=== PATIENT | male | born 1970 | race Two or more races ===

== ENCOUNTER 2024-11-29 15:26 | Emergency (ER) | payer OTHER ==
[~2024-11-29] VITALS: Ht 190.5 cm; Wt 106.6 kg
[2024-11-29] MEDS ORDERED: FAMOTIDINE/PF 20 MG/2 ML VIAL ONE (16:58)
[2024-11-29] MEDS ORDERED: KETOROLAC TROMETHAMINE 30 MG VIAL ONE (16:58)
[2024-11-29] MEDS ORDERED: KETOROLAC TROMETHAMINE 30 MG VIAL IV ONE (17:00)
[2024-11-29] MEDS ORDERED: FAMOtidine 10 MG/ML (4ML VIAL) IV ONE (17:00)
[2024-11-29 17:24] LABS: BASO % 0.5 % (0.1-1.2); EOS # 0.00 (0.04-0.54); EOS % 0.0 % (0.7-7.0); LYMPH # 3.06 (1.18-3.74); LYMPH % 24.6 % (19.3-53.1); MEAN PLATELET VOLUME 9.30 fl (9.4-12.4); MONO # 1.39 (0.24-0.82); MONO % 11.2 % (4.7-12.5); NEUT # 7.92 (1.56-6.13); NEUT % 63.5 % (34.0-71.1); RED CELL DISTRIBUTION WIDTH 13.2 % (11.6-14.4)
[2024-11-29 17:43] LABS: INR 1.0
[2024-11-29 17:47] LABS: ALT/SGPT 26.0 U/L (12-78); AST/SGOT 12.0 U/L (15-37); BILIRUBIN TOTAL 0.75 mg/dL (0.3-1.2); BUN CREA RATIO 14.0 (7.0-25.0); CREATININE SERUM 1.45 mg/dL (0.70-1.30); GFR 50.53; GLOBULINA 4.0 G/DL (2.4-3.5); GLUCOSE FASTING 100.0 mg/dL (65-100); OSMOLALITY SERUM 286.0 MOSM/KG (275-295)
[2024-11-29 18:43] LABS: URINE APPEARANCE Clear; URINE BILIRRUBIN Negative (NEGATIVE); URINE BLOOD Small; URINE COLOR Dark Yellow; URINE GLUCOSE Negative (NEGATIVE); URINE KETONE Trace (NEGATIVE); URINE LEUKOCYTE Negative; URINE NITRATE Negative; URINE PROTEIN Trace (NEGATIVE); URINE UROBILINOGEN 0.2 E.U./dl
[2024-11-29 18:47] LABS: URINE BACTERIA 8.3 uL (0.0-1933); URINE EPITHELIAL CELLS 2.4 uL (0.0-38.8); URINE RBC 51.0 uL (0.0-20.8); URINE WBC 2.9 uL (0.0-23.2)
[2024-11-29 19:12] LABS: URINE CAST 0.00 uL (0.0-1.40)
[2024-11-29] MEDS ORDERED: PEPCID AC20 MG PO (21:22)
[2024-11-29] MEDS ORDERED: PROBIOTIC1 EAC2 PO (21:22)
[2024-11-29] MEDS ORDERED: LEVSIN/SL0.125 MG SL (21:22)
[2024-11-29] MEDS ORDERED: METRONIDAZOLE500 MG PO (21:22)
[2024-11-29] MEDS ORDERED: CIPRO500 MG PO (21:22)
[2024-11-29] MEDS ORDERED: CIPROFLOXACIN HCL 500 MG TABLET PO ONE (21:30)
== END 2024-11-29 22:18 | disposition home or self-care (01) ==
LOC: ER 15:26
PROVIDERS: General Practice
DX: R10.32 Left lower quadrant pain (principal); K63.89 Other specified diseases of intestine; Z85.46 Personal history of malignant neoplasm of prostate